=== PATIENT | female | born 1975 | race African-American/Black ===

== ENCOUNTER 2025-01-31 10:50 | Emergency (ER) | payer OTHER, SELFPAY ==
--- NOTE | 2025-01-31 11:00 | ED.EAR ---
HPI - Ear Problem General Chief complaint: Ear Stated complaint: EARACHE/SOB Source: patient Mode of arrival: ambulatory Limitations: no limitations History of Present Illness HPI Narrative: Patient is a 49-year-old female presenting with complaint of bilateral otalgia x1 month. Additional symptoms reported include postnasal drip, congestion, cough, shortness of breath X2 weeks. Reports shortness of breath is consistent with her asthma, resolved with use of inhaler. No additional tx initiated [employer]. No known exposure to COVID, influenza, strep, PNA. no additional complaints. Related Data Home Medications ?Medication ?Instructions ?Recorded ?Confirmed ?Last Taken ?Type albuterol 90 mcg-budesonide 80 inh inhalation 01/31/25 Unknown History mcg/actuation HFA aerosol inhaler (Airsupra) azelastine 137 mcg (0.1 %) nasal intranasal 01/31/25 Unknown History spray cetirizine 10 mg tablet mg 01/31/25 Unknown History pantoprazole 20 mg tablet,delayed mg PO 01/31/25 Unknown History release Allergies Allergy/AdvReac Type Severity Reaction Status Date / Time No Known Allergies Allergy Verified 01/31/25 11:07 Review of Systems Review of Systems: CONSTITUTIONAL: Denies body aches, fever, chills, or sweats. EYES: Denies visual changes, redness, or discharge. ENT: Denies sore throat CARDIOVASCULAR: Denies chest pain, palpitations, or edema. RESPIRATORY: denies hemoptysis GASTROINTESTINAL: Denies abdominal pain, nausea, vomiting, or diarrhea. GENITOURINARY: Denies dysuria or hematuria. SKIN: Denies rash, itching, or wounds. MUSCULOSKELETAL: Denies back pain, joint pain, or myalgia. NEUROLOGIC: Denies headache, numbness, tingling, or weakness. PSYCH: Denies depression or anxiety. All systems reviewed & are unremarkable except as noted in HPI and below Exam Narrative: GENERAL: Well-appearing, well-nourished, and in no acute distress. HEAD: Normocephalic, atraumatic. EYES: EOMI. No redness or drainage. Conjunctivae normal. ENT: Mucous membranes pink and moist. Nares clear. No rhinorrhea. Throat normal. Uvula midline. No mastoid tenderness. NECK: Normal AROM. Supple. No lymphadenopathy. CHEST: No respiratory distress. Clear to auscultation. HEART: Regular rate and rhythm. No murmur appreciated. Normal peripheral pulses. ABDOMEN: Soft, nontender, nondistended, normal active bowel sounds. MUSCULOSKELETAL: No bony tenderness. EXTREMITIES: Normal range of motion. No edema. SKIN: Warm, dry, no rash. Capillary refill normal. Normal skin turgor. NEURO: No focal deficits. Alert and oriented x3. Gait steady. PSYCH: Normal affect. No signs of depression or anxiety. HENMT: Ears: TM abnormal bulging bilateral and erythematous bilateral; with no loss of landmarks and not perforated Course Course Level of Care: Express Care Visit Vital Signs Vital signs: Vital Signs Temperature 99.1 F 01/31/25 11:02 Pulse Rate 78 01/31/25 11:02 Respiratory Rate 16 01/31/25 11:02 Blood Pressure 128/79 01/31/25 11:02 Pulse Oximetry 100 01/31/25 11:02 Temperature 99.1 F 01/31/25 11:02 Pulse Rate 78 01/31/25 11:02 Respiratory Rate 16 01/31/25 11:02 Blood Pressure 128/79 01/31/25 11:02 Pulse Oximetry 100 01/31/25 11:02 Medical Decision Making MDM Narrative Medical decision making narrative: Please be advised this is a medical document. It is intended for [id number] communication. It is written in medical language and may contain unfamiliar abbreviations or verbiage. Medical documents are intended to carry relevant information, facts as evident, and the clinical opinion of the practitioner at the time of the encounter. This dictation may have been done utilizing a voice recognition system. Attempts have been made to correct errors. However, there may be uncorrected grammatical, spelling, and recognition errors present. Vital Signs Vital Signs: Vital Signs Temperature 99.1 F 01/31/25 11:02 Pulse Rate 78 01/31/25 11:02 Respiratory Rate 16 01/31/25 11:02 Blood Pressure 128/79 01/31/25 11:02 Pulse Oximetry 100 01/31/25 11:02 Temperature 99.1 F 01/31/25 11:02 Pulse Rate 78 01/31/25 11:02 Respiratory Rate 16 01/31/25 11:02 Blood Pressure 128/79 01/31/25 11:02 Pulse Oximetry 100 01/31/25 11:02 Discharge Plan Discharge Clinical Impression: Otitis media, Cough, Allergic rhinitis with postnasal drip Patient Disposition: Home Condition: Stable Instructions: Antibiotic Form, Ear Infection (ED) Additional Instructions: Begin using OTC flonase per the package instructions Go straight to ER should your symptoms become worse or should any new symptoms develop Patient Language: Japanese Prescriptions: New amoxicillin-pot clavulanate 875-125 mg tablet 1 tablet PO Q12H Qty: 20 0RF No Action cetirizine 10 mg tablet azelastine 137 mcg (0.1 %) spray,non-aerosol INTRANASAL Airsupra 90-80 mcg/actuation HFA aerosol inhaler INHALATION pantoprazole 20 mg tablet,delayed release (DR/EC) PO Follow-up/Referrals: Hardik,Barry [Other] - 02/01/25 Stand Alone Forms: Work/School Release IP Time of Disposition: 11:12
[2025-01-31 11:02] VITALS: BP 128/79; PULSE 78; RESP 16; TEMP 37.3; O2SAT 100
== END 2025-01-31 11:22 | disposition home or self-care (01) ==
PROVIDERS: Emergency Provider Registered Nurse
DX: H66.93 Otitis media, unspecified, bilateral (principal); J30.9 Allergic rhinitis, unspecified; R09.82 Postnasal drip
CPT/HCPCS: 99203; G0463